=== PATIENT | female | born 1950 | race Caucasian/White ===

== ENCOUNTER → 2022-05-08 09:55 | Outpatient (BNVA) | payer OTHER, MEDICARE, SELFPAY | PROVIDERS: PCP Internal Medicine; Visit Provider Psychiatry & Neurology Neurology | DX: Z13.89 Encounter for screening for other disorder (principal) ==

== ENCOUNTER → 2022-07-08 10:31 | Outpatient (BNVA) | payer OTHER, MEDICARE, SELFPAY | PROVIDERS: Visit Provider Psychiatry & Neurology Neurology | DX: R06.83 Snoring (principal); G47.10 Hypersomnia, unspecified; R25.1 Tremor, unspecified; G47.33 Obstructive sleep apnea (adult) (pediatric); Z99.89 Dependence on other enabling machines and devices ==

== ENCOUNTER 2022-10-27 10:00 | Outpatient (AMB) | payer OTHER, MEDICARE, SELFPAY ==
--- NOTE | 2022-10-27 10:00 | MHC.OFFVIS ---
Intake Vital Signs 10/27/22 10:13 Weight 199 lb BP 130/72 Blood Pressure Location Lt brachial Position Sitting Pulse 78 Pulse Source Pulse Oximeter Pulse Oximetry (%) 96 Oxygen Delivery Method Room Air Intake Visit Reasons: 3m follow up tremor-confirmed Intake Note: F/U Tremors. Patient states would like to stop the zonisamide her face is going numb Knockdown Worker Required: No Allergies hydrocodone Allergy (Severe, Verified 10/27/22 10:07) severe nausea latex Allergy (Severe, Verified 10/27/22 10:07) rash clavulanic acid [From Augmentin] Allergy (Unknown, Verified 10/27/22 10:07) Unknown acetaminophen [From Vicodin] Adverse Reaction (Severe, Verified 10/27/22 10:07) Vomiting vicoden Allergy (Severe, Uncoded 10/27/22 10:07) Vomiting succinate Allergy (Unknown, Uncoded 10/27/22 10:07) Unknown Medication List - Last Reconciled 10/27/22 by Cammie Del Angel MD amitriptyline 50 mg PO BEDTIME amlodipine 7.5 mg PO DAILY ammonium lactate 12% 1 appl topical DAILY carisoprodol (Soma) 350 mg PO BEDTIME cholecalciferol (vitamin D3) (Vitamin D3) 125 mcg PO DAILY flaxseed oil 1,000 mg PO DAILY lisinopril 40 mg PO DAILY magnesium 200 mg PO DAILY omeprazole 20 mg PO DAILY propranolol ER 120 mg PO .AM zolmitriptan (Zomig) 5 mg PO Q2-4H PRN zonisamide 50 mg (2 x 25 mg) PO BID HPI HPI Comments History of Present Illness Details 72y/o right handed female comes for follow up of tremors. she started noticing tremors on and off for over 10 years. They were mild initially. Tremors runs in the family - all her 4 siblings and her mother have tremors The tremors are more when she does activities that needs fine motor coordination. she feels elba zonisamide makes her face numb and wants to stop . she noticed only mild improvement SHe went to [facility] for opinion regarding tremors , parkinsons was ruled out. she has noticed increase in tremors in the past 1 year.Stress makes the tremors worse , relaxing helps. Her tremors are mostly with posture , action. she has head tremors as well.Tremors slows her cooking and baking which bothers her. she has h/o migraines and has h/o neck pain Migraines are less frequent now with zomig and amitriptyline.she has 4 migraine days a month and responds to zomig. she has occasional aura. It can last 30 min to 2 hrs .No change in migraine frequency since decrease in amitriptyline dose. she has ELICIA and is on CPAP . she is compliant with her CPAP.( cory)She has a new CPAP now as her respironics was recalled.her repeat sleep study was denied. [facility] Medical History Back pain GERD (gastroesophageal reflux disease) HTN (hypertension) Hypersomnia Migraine Neck pain Obesity ELICIA on CPAP Snoring Snoring Tremors of nervous system Surgical History H/O: section History of cataract removal with insertion of prosthetic lens History of colon resection History of tonsillectomy Hx of cholecystectomy Family History Father Cancer Mother Asthma Hyperlipemia Alzheimers disease Hypertension Sister Heart disease Diabetes Hypertension Hyperlipemia Family/Other Diabetes Social History Alcohol intake: current Patient Tobacco Use Status: Never used Tobacco Use of substances other than those prescribed or required for medical reasons: No Physical Exam Vital Signs: Last Vital Signs Pulse 78 10/27/22 10:13 BP 130/72 10/27/22 10:13 Pulse Ox 96 10/27/22 10:13 Oxygen Delivery Method Room Air 10/27/22 10:13 Const General: cooperative, healthy appearing and comfortable Nutritional Appearance: obese Orientation/consciousness: patient oriented x3 Limitations: no limitations Eyes Pupils: Equal, round and reactive pupils present Neuro Other: spasmodic torticollis right laterocollis head tremors Mild emil UE postural action tremors Decreased facial expression and blink No arm swing on right General: patient oriented x3, gait normal and tone normal Cranial nerves: Yes Facial sensation intact/muscles of mastication intact, Yes Equal, round and reactive pupils present, Yes Bilaterally intact EOM present, Yes Nystagmus not present, Yes Normal facial strength present, Yes Midline tongue present and Yes Symmetric palate elevation present Cognition (Neuro): normal cognition Gait exam (Neuro): Normal gait present Motor exam (neuro): 5/5 motor strength present throughout and Normal motor muscle tone present throughout Coordination: [id number] test normal Assessment & Plan Assessment & Plan (1) Tremors of nervous system: Comment: ? parkinsons Code(s): R25.1 - Tremor, unspecified (2) ELICIA on CPAP: Code(s): G47.33 - Obstructive sleep apnea (adult) (pediatric); Z99.89 - Dependence on other enabling machines and devices Plan Taper zonisamide 50 mg bid for tremors Sleep study to reevaluate sleep apnea- insurance denies Decrease Amitriptyline 25mg qhs compliance report from [facility] Medications: New amitriptyline 1/2 to 1 tab qhs 50 mg PO BEDTIME 90 tabs 1RF Coding Level of Care Code Est Pt Level 4 (09524) Diagnoses Tremors of nervous system R25.1 ELICIA on CPAP G47.33; Z99.89
[2022-10-27 10:13] VITALS: BP 130/72; PULSE 78; O2SAT 96
== END 2022-10-27 10:33 | disposition home or self-care (01) ==
PROVIDERS: Visit Provider Psychiatry & Neurology Neurology
DX: R25.1 Tremor, unspecified (principal); G47.33 Obstructive sleep apnea (adult) (pediatric); Z99.89 Dependence on other enabling machines and devices
CPT/HCPCS: 99214

== ENCOUNTER → 2022-10-27 10:00 | Outpatient (BNVA) | payer OTHER, MEDICARE, SELFPAY | PROVIDERS: Visit Provider Psychiatry & Neurology Neurology | DX: R06.83 Snoring (principal); G47.10 Hypersomnia, unspecified; R25.1 Tremor, unspecified; G47.33 Obstructive sleep apnea (adult) (pediatric); Z99.89 Dependence on other enabling machines and devices ==

== ENCOUNTER 2022-11-03 08:40 | Outpatient (REF) | payer OTHER, SELFPAY ==
[2022-11-03 14:35] LABS: MANUAL DIFF FLAG NO
[2022-11-03 14:48] LABS: Basophils Absolute Auto 0.1 X10*3/uL (0.0-0.2); Basophils Percent Auto 1.1 % (0-2); Eosinophils Absolute Auto 0.1 X10*3/uL (0.0-0.4); Eosinophils Percent Auto 2.1 % (0-4); Hematocrit 41.4 % (37.0-47.0); Hemoglobin 13.9 g/dl (12.0-16.0); Imm Gran Abs Auto 0.01 X10*3/uL (0.00-0.03); Imm Gran Pct Auto 0.2 % (0.0-0.4); Lymphocytes Absolute Auto 1.7 X10*3/uL (1.2-4.9); Lymphocytes Percent Auto 36.2 % (20-40); Mean Corpuscular HGB Conc 33.6 g/dl (31.0-35.0); Mean Corpuscular Hemoglobin 29.9 pg (27.0-33.0); Monocytes Absolute Auto 0.4 X10*3/uL (0.1-1.2); Monocytes Percent Auto 9.1 % (2-11); Neutrophils Absolute Auto 2.4 x10*3/uL (2.0-8.3); Neutrophils Percent Auto 51.3 % (45-73); Platelet Count 265 X10*3/uL (160-400); Red Blood Count 4.65 X10*6/uL (4.20-5.50); Red Cell Distribution Width 11.9 % (11.0-16.0); White Blood Count 4.7 X10*3/uL (4.8-10.8)
[2022-11-03 14:53] LABS: Estimated Average Glucose 111 mg/dL; Hemoglobin A1c % 5.5 %
[2022-11-03 15:31] LABS: Anion Gap 14 (12-20); Blood Urea Nitrogen 18 mg/dL (9-16); Calcium 9.6 mg/dL (8.4-10.2); Carbon Dioxide 25 mmol/L (22-29); Chloride 107 mmol/L (96-108); Cholesterol 193 mg/dL; Estimated Glomerular Filt Rate > 60; Glucose Random 84 mg/dL (60-115); HDL Cholesterol 56 mg/dL; LDL Cholesterol Calculated 112 mg/dl; Potassium 3.9 mmol/L (3.3-5.1); Sodium 142 mmol/L (135-145); Triglycerides 127 mg/dL
[2022-11-03 15:36] LABS: Thyroid Stimulating Hormone 1.26 uIU/mL (0.32-4.0)
[2022-11-04 03:52] LABS: HBS Num1 0.23 mIU/mL (0-7.99); HBc Num1 0.11 S/CO (0.00-0.79); HBsAGNum1 0.41 S/CO (0.00-0.99); Hepatitis A Antibody IgM 0.18 Index (0-0.79); Hepatitis B Core Antibody Nonreactive (Nonreactive); Hepatitis B Surface Antigen Negative (Negative); ~HepC Num1 0.08 S/CO (0.00-0.79); ~Hepatitis A Antibody IgM Nonreactive (Nonreactive); ~Hepatitis B Surface Antibody NONREACTIVE (Nonreactive); ~Hepatitis C Antibody Nonreactive (Nonreactive)
== END 2022-11-03 08:41 | disposition home or self-care (01) ==
LOC: HO.CHCLNP 08:40
PROVIDERS: Visit Provider Internal Medicine
DX: Z00.00 Encounter for general adult medical examination without abnormal findings (principal)
CPT/HCPCS: 36415; 80048; 80061; 83036; 84443; 85025; 86704; 86706; 86709; 86803; 87340

== ENCOUNTER 2023-02-05 11:04 | Outpatient (AMB) | payer OTHER, MEDICARE, SELFPAY ==
--- NOTE | 2023-02-05 11:13 | MHC.OFFVIS ---
Intake Vital Signs 02/05/23 11:20 Height 5 ft 2 in Weight 200 lb 4 oz BMI 36.6 BP 138/88 Blood Pressure Location Rt brachial Position Sitting Respiration 16 Pulse 73 Pulse Source Pulse Oximeter Pulse Oximetry (%) 95 Oxygen Delivery Method Room Air Intake Visit Reasons: 3m follow up tremor -LVM Intake Note: Pt presents for a 3 month follow up for tremors. Pt reports her tremors have worsened slightly since her last visit. Vamp Cut Out Worker Required: No Allergies hydrocodone Allergy (Severe, Verified 02/05/23 11:15) severe nausea latex Allergy (Severe, Verified 02/05/23 11:15) rash clavulanic acid [From Augmentin] Allergy (Unknown, Verified 02/05/23 11:15) Unknown acetaminophen [From Vicodin] Adverse Reaction (Severe, Verified 02/05/23 11:15) Vomiting vicoden Allergy (Severe, Uncoded 02/05/23 11:15) Vomiting succinate Allergy (Unknown, Uncoded 02/05/23 11:15) Unknown Medication List - Last Reconciled 02/05/23 by Cammie Del Angel MD amitriptyline 50 mg PO BEDTIME amitriptyline 50 mg PO BEDTIME amlodipine 7.5 mg PO DAILY ammonium lactate 12% 1 appl topical DAILY carisoprodol (Soma) 350 mg PO BEDTIME cholecalciferol (vitamin D3) (Vitamin D3) 125 mcg PO DAILY flaxseed oil 1,000 mg PO DAILY lisinopril 40 mg PO DAILY magnesium 200 mg PO DAILY omeprazole 20 mg PO DAILY propranolol ER 120 mg PO .AM zolmitriptan (Zomig) 5 mg PO Q2-4H PRN HPI HPI Comments History of Present Illness Details 72y/o right handed female comes for follow up of tremors. she started noticing tremors on and off for over 10 years. They were mild initially. Tremors runs in the family - all her 4 siblings and her mother have tremors The tremors are more when she does activities that needs fine motor coordination. she tried zonisamide but she had facial numbness so she stopped SHe went to [facility] for opinion regarding tremors , parkinsons was ruled out. she has noticed increase in tremors in the past 1 year.Stress makes the tremors worse , relaxing helps. Her tremors are mostly with posture , action. she has head tremors as well.Tremors slows her cooking and baking which bothers her. she has h/o migraines and has h/o neck pain Migraines are less frequent now with zomig and amitriptyline.she has 4 migraine days a month and responds to zomig. she has occasional aura. It can last 30 min to 2 hrs . she has ELICIA and is on CPAP . she is compliant with her CPAP.( [facility]) [facility] Medical History Back pain GERD (gastroesophageal reflux disease) HTN (hypertension) Hypersomnia Migraine Neck pain Obesity ELICIA on CPAP Snoring Snoring Tremors of nervous system Surgical History History of cataract removal with insertion of prosthetic lens History of tonsillectomy H/O: section History of colon resection Hx of cholecystectomy Family History Father Cancer Mother Asthma Hyperlipemia Alzheimers disease Hypertension Sister Heart disease Diabetes Hypertension Hyperlipemia Family/Other Diabetes Social History Alcohol intake: current Patient Tobacco Use Status: Never used Tobacco Physical Exam Vital Signs: Last Vital Signs Pulse 73 02/05/23 11:20 Resp 16 02/05/23 11:20 BP 138/88 02/05/23 11:20 Pulse Ox 95 02/05/23 11:20 Oxygen Delivery Method Room Air 02/05/23 11:20 BMI result Body Mass Index 36.6 Const General: cooperative, healthy appearing and comfortable Nutritional Appearance: obese Orientation/consciousness: patient oriented x3 Limitations: no limitations Eyes Pupils: Equal, round and reactive pupils present Neuro Other: spasmodic torticollis right laterocollis head tremors Mild emil UE postural action tremors Decreased facial expression and blink No arm swing on right General: patient oriented x3, gait normal and tone normal Cranial nerves: Yes Facial sensation intact/muscles of mastication intact, Yes Equal, round and reactive pupils present, Yes Bilaterally intact EOM present, Yes Nystagmus not present, Yes Normal facial strength present, Yes Midline tongue present and Yes Symmetric palate elevation present Cognition (Neuro): normal cognition Gait exam (Neuro): Normal gait present Motor exam (neuro): 07/24 motor strength present throughout and Normal motor muscle tone present throughout Coordination: [id number] test normal Assessment & Plan Assessment & Plan (1) Tremors of nervous system: Comment: ? parkinsons Code(s): R25.1 - Tremor, unspecified (2) ELICIA on CPAP: Code(s): G47.33 - Obstructive sleep apnea (adult) (pediatric); Z99.89 - Dependence on other enabling machines and devices Plan Wrist size 15 on left and 16 on right- CHING trio info given . Patient will call with any questions. will trial her on primidone 50mg qhs Propranalol LA 120mg qd CPAP compliance stressed Continue amitriptyline 50mg qhs Medications: New primidone 50 mg PO BEDTIME 30 tabs 6RF Discontinued zonisamide Discontinued Reason: Patient no longer taking 50 mg (2 x 25 mg) PO BID 120 caps 3RF Coding Level of Care Code Est Pt Level 4 (25553) Diagnoses Tremors of nervous system R25.1 ELICIA on CPAP G47.33; Z99.89
[2023-02-05 11:20] VITALS: BP 138/88; PULSE 73; RESP 16; O2SAT 95; BMI 36.6
== END 2023-02-05 11:49 | disposition home or self-care (01) ==
PROVIDERS: Visit Provider Psychiatry & Neurology Neurology
DX: R25.1 Tremor, unspecified (principal); G47.33 Obstructive sleep apnea (adult) (pediatric); Z99.89 Dependence on other enabling machines and devices
CPT/HCPCS: 99214

== ENCOUNTER → 2023-02-05 11:04 | Outpatient (BNVA) | payer OTHER, MEDICARE, SELFPAY | PROVIDERS: Visit Provider Psychiatry & Neurology Neurology | DX: R06.83 Snoring (principal); G47.10 Hypersomnia, unspecified; R25.1 Tremor, unspecified; G47.33 Obstructive sleep apnea (adult) (pediatric); Z99.89 Dependence on other enabling machines and devices ==

== ENCOUNTER 2024-02-16 12:03 | Outpatient (REF) | payer OTHER, MEDICARE, SELFPAY ==
[2024-02-16 14:23] LABS: MANUAL DIFF FLAG NO
[2024-02-16 14:25] LABS: Basophils Absolute Auto 0.1 X10*3/uL (0.0-0.2); Basophils Percent Auto 0.8 % (0-2); Eosinophils Absolute Auto 0.1 X10*3/uL (0.0-0.4); Eosinophils Percent Auto 1.7 % (0-4); Hematocrit 43.8 % (37.0-47.0); Hemoglobin 14.9 g/dl (12.0-16.0); Imm Gran Abs Auto 0.02 X10*3/uL (0.00-0.03); Imm Gran Pct Auto 0.3 % (0.0-0.4); Lymphocytes Absolute Auto 1.9 X10*3/uL (1.2-4.9); Lymphocytes Percent Auto 28.4 % (20-40); Mean Corpuscular Hemoglobin 29.9 pg (27.0-33.0); Mean Corpuscular Volume 87.8 fL (80.0-98.0); Mean Platelet Volume 9.6 fL (9.4-12.3); Monocytes Absolute Auto 0.7 X10*3/uL (0.1-1.2); Monocytes Percent Auto 10.1 % (2-11); Neutrophils Absolute Auto 3.9 x10*3/uL (2.0-8.3); Neutrophils Percent Auto 58.7 % (45-73); Platelet Count 301 X10*3/uL (160-400); Red Blood Count 4.99 X10*6/uL (4.20-5.50); Red Cell Distribution Width 11.9 % (11.0-16.0); White Blood Count 6.7 X10*3/uL (4.8-10.8)
[2024-02-16 14:43] LABS: Alanine Aminotransferase 51 U/L (0-31); Albumin Level 4.4 g/dL (3.5-5.0); Alkaline Phosphatase 90 U/L (39-117); Anion Gap 16 (12-20); Aspartate Amino Transferase 33 U/L (5-31); Bilirubin Total 0.4 mg/dL (0.0-1.0); Blood Urea Nitrogen 16 mg/dL (9-16); Calcium 9.9 mg/dL (8.4-10.2); Carbon Dioxide 26 mmol/L (22-29); Chloride 104 mmol/L (96-108); Cholesterol 192 mg/dL (<200); Estimated Glomerular Filt Rate > 60; Glucose Random 101 mg/dL (60-115); HDL Cholesterol 54 mg/dL (>40); LDL Cholesterol Calculated 100 mg/dL (<100); Potassium 4.2 mmol/L (3.3-5.1); Sodium 142 mmol/L (135-145); Total Protein 7.4 g/dL (6.5-8.0); Triglycerides 193 mg/dL (<150)
== END 2024-02-16 12:04 | disposition home or self-care (01) ==
LOC: HO.CHCLDS 12:03
PROVIDERS: Visit Provider Internal Medicine
DX: I10 Essential (primary) hypertension (principal)
CPT/HCPCS: 36415; 80053; 80061; 84443; 85025

== ENCOUNTER 2024-09-05 09:15 | Outpatient (REF) | payer OTHER, MEDICARE, SELFPAY ==
--- OUTSIDE RECORDS SUMMARY | 2024-09-05 10:01 | XMS_ITS | Encounter Summary ---
Author Organization [facility] Address [address] [facility] [address] [place] [address] Phone Care Team Providers Care Bus Assistant Name Role Phone Jude Johnson MD Primary Care Provider Reason for Visit * Reason Comments Med Refill Encounter Details Date Type Department Care Team (Late st Contact Info) Description 09/06/2021 Refill [facility] [address] [facility] [address] [place] [address] Ricardo Yu MD [id number] [facility] [address] [place] [address] Social History Tobacco Use Types Packs/Day Years Used Date Smoking Tobacco: Never Alcohol Use Standard Drinks/Week Comments Yes 0 (1 standard drink = 0.6 oz pure alcohol) Alcoholic Drinks/day: Occasional social drink Comments Unknown Sex and Gender Information Value Date Recorded Sex Assigned at Not on file Legal Sex Female 5:11 PM EST Gender Identity Not on file Sexual Orientation Not on file documented as of this encounter Plan of Treatment Not on file documented as of this encounter Visit Diagnoses Not on filedocumented in this encounter Care Teams Bus Assistant Relationship Specialty Start Date End Date Jude Johnson MD PCP - General 04/01/20 documented as of this encounter
[2024-09-05 14:30] LABS: MANUAL DIFF FLAG NO
[2024-09-05 14:36] LABS: Basophils Absolute Auto 0.1 X10*3/uL (0.0-0.2); Basophils Percent Auto 0.9 % (0-2); Eosinophils Absolute Auto 0.1 X10*3/uL (0.0-0.4); Eosinophils Percent Auto 1.9 % (0-4); Hematocrit 44.4 % (37.0-47.0); Hemoglobin 15.2 g/dl (12.0-16.0); Imm Gran Abs Auto 0.02 X10*3/uL (0.00-0.03); Imm Gran Pct Auto 0.4 % (0.0-0.4); Lymphocytes Absolute Auto 1.9 X10*3/uL (1.2-4.9); Lymphocytes Percent Auto 36.2 % (20-40); Mean Corpuscular HGB Conc 34.2 g/dl (31.0-35.0); Mean Corpuscular Hemoglobin 29.8 pg (27.0-33.0); Mean Corpuscular Volume 87.1 fL (80.0-98.0); Mean Platelet Volume 9.4 fL (9.4-12.3); Monocytes Absolute Auto 0.5 X10*3/uL (0.1-1.2); Monocytes Percent Auto 9.9 % (2-11); Neutrophils Absolute Auto 2.7 x10*3/uL (2.0-8.3); Neutrophils Percent Auto 50.7 % (45-73); Platelet Count 288 X10*3/uL (160-400); Red Cell Distribution Width 11.6 % (11.0-16.0); White Blood Count 5.4 X10*3/uL (4.8-10.8)
[2024-09-05 14:52] LABS: Alanine Aminotransferase 42 U/L (0-31); Albumin Level 4.5 g/dL (3.5-5.0); Alkaline Phosphatase 86 U/L (39-117); Anion Gap 13 (12-20); Aspartate Amino Transferase 27 U/L (5-31); Bilirubin Direct 0.2 mg/dL (0.0-0.5); Bilirubin Total 0.5 mg/dL (0.0-1.0); Blood Urea Nitrogen 18 mg/dL (9-16); Calcium 10.1 mg/dL (8.4-10.2); Carbon Dioxide 28 mmol/L (22-29); Chloride 105 mmol/L (96-108); Cholesterol 224 mg/dL (<200); Estimated Glomerular Filt Rate > 60; Glucose Random 106 mg/dL (60-115); HDL Cholesterol 55 mg/dL (>40); LDL Cholesterol Calculated 138 mg/dL (<100); Potassium 4.5 mmol/L (3.3-5.1); Sodium 141 mmol/L (135-145); Total Protein 7.3 g/dL (6.5-8.0); Triglycerides 156 mg/dL (<150)
[2024-09-05 15:08] LABS: TSH reflex Free T4 2.26 uIU/mL (0.32-4.0)
== END 2024-09-05 09:16 | disposition home or self-care (01) ==
LOC: HO.CHCLDS 09:15
PROVIDERS: Visit Provider Internal Medicine
DX: R74.01 Elevation of levels of liver transaminase levels (principal); I10 Essential (primary) hypertension
CPT/HCPCS: 36415; 80053; 80061; 82248; 84443; 85025

== ENCOUNTER 2024-09-26 11:37 | Outpatient (REF) | payer OTHER, MEDICARE, SELFPAY ==
--- OUTSIDE RECORDS SUMMARY | 2024-09-26 12:42 | XMS_ITS | Encounter Summary ---
Author Organization [facility] Address [address] [facility] [address] [facility] [address] [place] [address] Phone Care Team Providers Care Industrial Painter Name Role Phone Jude Johnson MD Primary Care Provider Reason for Visit * Reason Comments Med Refill Encounter Details Date Type Department Care Team (Late st Contact Info) Description 09/06/2021 Refill [facility] [address] [facility] [address] [place] [address] Ricardo Yu MD [id number] [facility] [address] [place] [address] Social History Tobacco Use Types [...] on filedocumented in this encounter Care Teams Industrial Painter Relationship Specialty Start Date End Date Jude Johnson MD PCP - General 04/01/20 documented as of this encounter
--- OUTSIDE RECORDS SUMMARY | 2024-09-26 12:42 | XMS_ITS | Encounter Summary ---
Author Organization [email or web address] Address [address] [place] [address] Care Team Providers Care Pathology Transcriptionist Name Role Phone Jude Johnson MD Primary Care Provider [phone] Reason for Visit * Reason Onset Date Comments Medication Question 04/15/2023 Encounter Details Date Type Department Care Team ([facility] st Contact Info) Description 04/15/2023 Telephone [facility] [address] [place] [address] Jude Johnson MD [address] [place] [address] Medication Question Social History Tobacco Use Types Packs/Day Years Used Date Smoking Tobacco: Never Smokeless Tobacco: Never Alcohol Use Standard Drinks/Week Comments Never 0 (1 standard drink = 0.6 oz pur e alcohol) Depression Answer Date Recorded Patient Health Questionnaire-9 Score 3 11/02/2022 Housing Stability Answer Date Recorded What is your housing situation today? I have kamalatomy rocha 01/05/[address] you li ve. Do you have problems with any of the following? None of the above 01/05/2023 Food Insecurity Answer Date Recorded Within the past 12 months, y ou worried that your food would run out before you got money to buy more: Never True 01/05/2023 Within the past 12 months,th e food you bought just didn't last and you didn't have enough money to get more: Never True Transportation Answer Date Recorded In the past 12 months, has l ack of transportation kept you from medical appts, meetings, work or from getting things needed for daily living? No 01/05/2023 Utilities Answer Date Recorded In the past 12 months, has t he electric, gas, oil or water company threatened to shut off services in your home? No 01/05/2023 Depression Answer Date Recorded Patient Health Questionnaire-2 Score 0 11/02/2022 Comments Unknown Sex and Gender Information Value Date Recorded Sex Assigned at Female 01/19/2022 10:25 AM EDT Legal Sex Female 10:25 AM EDT Gender Identity Female 01/19/2022 10:25 AM EDT Sexual Orientation Straight 01/19/2022 10 :25 AM EDT documented as of this encounter Miscellaneous Notes * Telephone Encounter - Adelaida Pandey RN - 04/16/2023 12:49 PM EST Noted, placed call to pharmacy and informed of POC. The 120mg dose was discontinued on their end. * Telephone Encounter - Adelaida Pandey RN - 04/16/2023 10:43 AM EST Placed call to [facility] pharmacy regarding message below. Pt is already on propanolol generic and pharmacy does not understand why someone from [facility] would be calling PCP office. Advised to disregard message, but while pharmacist was looking into pt chart, he requested clarification if pt is to remain on the 80mg dose as pt was prescribed a 120mg dose earlier in the month. Please review and advise if pt is to take a total of 200mg of propanolol or just the 80 or 120mg? * Telephone Encounter - Edwar Rivera - 04/15/2023 9:04 AM EST Tc from Cassie at [facility] calling on behalf of the patient states is trying to save the patient money byswitching the medication propranolol LA (Inderal LA) 80 MG 24 hr capsule to a generic medication any questions please call Cassie at documented in this encounter Plan of Treatment Not on file documented as of this encounter Visit Diagnoses Not on filedocumented in this encounter Additional Health Concerns Assessment Noted Time PHQ-9 Depression Total Score: 3 11/03/19 23 11:24 AM EDT documented as of this encounter Care Teams Pathology Transcriptionist Relationship Specialty Start Date End Date Jude Johnson MD [address] [place] [id number] PCP - General Internal Medicine 03/22/18 documented as of this encounter
[2024-09-26 15:34] LABS: INTERNATIONAL NORM RATIO 0.9 (0.9-1.1); Prothrombin Time 10.3 SEC (10.9-12.4)
[2024-09-26 15:54] LABS: Iron 110 mcg/dL (30-160); Percent Iron Saturation 38 % (15-50); Total Iron Binding Capacity 291 mcg/dL (228-428); Unsaturated Iron Binding 181 ug/dL
[2024-09-26 15:59] LABS: Ferritin 127 ng/mL (10-250)
[2024-09-27 03:35] LABS: HBS Num1 0.00 mIU/mL (0-7.99); ~Hepatitis B Surface Antibody NONREACTIVE (Nonreactive)
== END 2024-09-26 11:38 | disposition home or self-care (01) ==
LOC: HO.CHCLDS 11:37
PROVIDERS: Visit Provider Internal Medicine
DX: R74.01 Elevation of levels of liver transaminase levels (principal)
CPT/HCPCS: 36415; 82728; 82784; 83540; 85610; 86706